=== PATIENT | male | born 1955 | race Caucasian/White ===

== ENCOUNTER 2024-11-27 06:16 | Day surgery (SDC) | payer OTHER, SELFPAY ==
[2024-11-27 07:37] LABS: Glucose - Point of Care 161 mg/dl (70-99)
== END 2024-11-27 09:26 | disposition home or self-care (01) ==
LOC: GI 06:16
PROVIDERS: ATTENDING PHYSICIAN Internal Medicine Gastroenterology
DX: Z12.11 Encounter for screening for malignant neoplasm of colon (principal); K64.8 Other hemorrhoids; K57.30 Diverticulosis of large intestine without perforation or abscess without bleeding; D12.3 Benign neoplasm of transverse colon; D12.4 Benign neoplasm of descending colon; D12.5 Benign neoplasm of sigmoid colon; K63.5 Polyp of colon; Z86.0100 Personal history of colon polyps, unspecified
CPT/HCPCS: 45385; 82962; 88305